=== PATIENT | female | born 1970 | race Caucasian/White ===

== ENCOUNTER 2018-12-12 19:53 | Inpatient (IN) | payer OTHER ==
[~2018-12-12] VITALS: Ht 154.9 cm; Wt 40.4 kg
[2018-12-12] MEDS ORDERED: SODIUM CHLORIDE 0.9% 1,000 ML IV ONE ×2 (20:18→23:23)
[2018-12-12] MEDS ORDERED: ONDANSETRON HCL 4MG/2ML INJ IV ONE (20:30)
[2018-12-12 20:53] LABS: BASOPHILS % 0.6 % (0.0-2.0); EOSINOPHILS % 0.6 % (0.0-5.0); HEMOGLOBIN. 8.9 g/dL (12.0-16.0); LYMPHOCYTES % 20.2 % (20.0-50.0); MEAN CORPUSCULAR HEMOGLOBIN 27.1 pg (28.0-32.0); MEAN CORPUSCULAR VOLUME 79.3 fL (81.0-99.0); MEAN PLATELET VOLUME 9.9 fl (7.4-10.4); MONOCYTES % 7.6 % (2.0-8.0); PLATELET 152 x1000/uL (130-400); RED BLOOD CELL COUNT 3.28 mill/uL (4.2-5.4); RED CELL DISTRIBUTION WIDTH 14.4 % (11.6-14.6)
[2018-12-12 20:54] LABS: CHLORIDE 109 mEq/L (98-107)
[2018-12-12 20:56] LABS: PARTIAL THROMBOPLASTIN TIME 26.6 sec (23.4-31.0); PROTHROMBIN TIME 10.8 sec (9.6-11.0)
[2018-12-12 20:58] LABS: ETHANOL BLOOD < 10 mg/dL
[2018-12-12 21:16] LABS: HCG SCREEN NEGATIVE
[2018-12-12 22:40] LABS: CLARITY URINE CLEAR (CLEAR); COLOR URINE YELLOW (YELLOW); KETONES URINE NEGATIVE (NEGATIVE); LEUKOCYTE ESTERASE URINE 1+ (NEGATIVE); NITRITE URINE NEGATIVE (NEGATIVE); OCCULT BLOOD URINE NEGATIVE (NEGATIVE); PH URINE 6.5 (4.5-8.0); PROTEIN URINE NEGATIVE (NEGATIVE); SPECIFIC GRAVITY URINE 1.007 (1.005-1.030); UROBILINOGEN URINE 0.2 E.U./dL (0.2-1.0)
[2018-12-12 22:57] LABS: *AMPHETAMINES SCREEN URINE NEGATIVE (NEGATIVE); *BARBITURATES SCREEN URINE NEGATIVE (NEGATIVE); *COCAINE SCREEN URINE NEGATIVE (NEGATIVE); METHADONE URINE SCREEN NEGATIVE (NEGATIVE); OPIATES URINE SCREEN NEGATIVE (NEGATIVE); PHENCYCLIDINE URINE SCREEN NEGATIVE (NEGATIVE)
[2018-12-12 22:58] LABS: CANNABINOID URINE SCREEN NEGATIVE (NEGATIVE)
[2018-12-12 23:00] LABS: *BENZODIAZEPINES SCREEN URINE PRESUMTIVE POSITIVE (NEGATIVE)
[2018-12-13 00:01] LABS: CHLORIDE 113 mEq/L (98-107)
[2018-12-13] MEDS ORDERED: ONDANSETRON HCL 4MG/2ML INJ IV PRN (10:45)
[2018-12-13] MEDS: DEXT 5%/0.45% NACL 1000ML 1,000 ML IV SCH ×2 (10:45→23:35)
[2018-12-13 14:06] LABS: HEMATOCRIT 31.5 % (36.0-48.0); HEMOGLOBIN 10.7 g/dL (12.0-16.0)
[2018-12-13 14:42] LABS: C REACTIVE PROTEIN QUANT < 0.2 mg/L (0.0-3.0); TOTAL IRON BINDING CAPACITY 328 ug/dL (250-450)
[2018-12-13 15:05] LABS: FERRITIN < 5 ng/mL (10-291)
[2018-12-13 15:14] LABS: VITAMIN B12 SERUM 335 pg/mL (211-911)
[2018-12-13 15:15] VITALS: BP 135/76
[2018-12-13 17:33] LABS: PARTIAL THROMBOPLASTIN TIME 26.8 sec (23.4-31.0); PROTHROMBIN TIME 10.4 sec (9.6-11.0)
[2018-12-13] MEDS ORDERED: SULF500T PO (19:02)
[2018-12-13 20:00] VITALS: BP 107/57
[2018-12-14] VITALS: BP 115/62
[2018-12-14 04:00] VITALS: BP 109/55
[2018-12-14 06:38] LABS: PARTIAL THROMBOPLASTIN TIME 26.3 sec (23.4-31.0); PROTHROMBIN TIME 10.2 sec (9.6-11.0)
[2018-12-14 06:47] LABS: BASOPHILS % 0.9 % (0.0-2.0); EOSINOPHILS % 0.6 % (0.0-5.0); HEMATOCRIT. 37.5 % (36.0-48.0); HEMOGLOBIN. 12.6 g/dL (12.0-16.0); MEAN CORPUSCULAR HEMOGLOBIN 26.8 pg (28.0-32.0); MEAN CORPUSCULAR VOLUME 79.5 fL (81.0-99.0); MEAN PLATELET VOLUME 9.9 fl (7.4-10.4); MONOCYTES % 8.3 % (2.0-8.0); NEUTROPHILS % 61.2 % (40.0-76.0); PLATELET 203 x1000/uL (130-400); RED BLOOD CELL COUNT 4.72 mill/uL (4.2-5.4); RED CELL DISTRIBUTION WIDTH 14.7 % (11.6-14.6)
[2018-12-14 06:54] LABS: CHLORIDE 107 mEq/L (98-107)
[2018-12-14 08:00] VITALS: BP 140/75
[2018-12-14] MEDS: DEXT 5%/0.45% NACL 1000ML 1,000 ML IV SCH (13:30)
[2018-12-14 14:48] VITALS: BP 132/73
[2018-12-16 15:10] LABS: ANTI-MYELOPEROXIDASE AB < 9.0 U/mL (0.0-9.0); ANTI-PROTEINASE 3 ABS 3.6 U/mL (0.0-3.5)
[2018-12-17 14:10] LABS: ATYPICAL P-ANCA <1:20 titer (Neg:<1:20); CYTOPLASMIC C-ANCA <1:20 titer (Neg:<1:20); PERINUCLEAR P-ANCA <1:20 titer (Neg:<1:20)
[2018-12-17 15:12] LABS: ATYPICAL pANCA <1:20 titer (Neg:<1:20)
== END 2018-12-14 16:00 | disposition home or self-care (01) | DRG 817 ==
LOC: EDBD 21:00 → ER 21:00 → 8WST 12-13 08:05 → ENRESERV 12-13 13:53
PROVIDERS: ADMIT Internal Medicine Nephrology; ATTEND Internal Medicine Nephrology
DX: T39.092A Poisoning by salicylates, intentional self-harm, initial encounter (principal); E87.8 Other disorders of electrolyte and fluid balance, not elsewhere classified; Y92.89 Other specified places as the place of occurrence of the external cause; D64.9 Anemia, unspecified; K52.9 Noninfective gastroenteritis and colitis, unspecified; T39.1X2A Poisoning by 4-Aminophenol derivatives, intentional self-harm, initial encounter; D50.9 Iron deficiency anemia, unspecified; F32.9 Major depressive disorder, single episode, unspecified; N39.0 Urinary tract infection, site not specified; Z91.5 Personal history of self-harm; Z98.82 Breast implant status; Z91.19 Patient's noncompliance with other medical treatment and regimen
CPT/HCPCS: 36415; 71045; 80048; 80076; 80305; 80307; 80320; 80329; 82607; 82728; 82746; 82962; 83520; 83540; 83550; 84703; 85014; 85018; 85384; 85651; 86140; 86256; 86671; 93005; 93970; 96361; 96374; 99291; J2405; J7030; J7070; G0480

== ENCOUNTER 2019-11-05 12:30 | Emergency (ER) | payer MEDICAID ==
[~2019-11-05] VITALS: Ht 152.4 cm; Wt 55.0 kg
[~2019-11-05 12:30] MED LIST: SULF500T PO
[2019-11-05] MEDS ORDERED: SODIUM CHLORIDE 0.9% 1,000 ML IV ONE (13:53)
[2019-11-05 14:22] LABS: BASOPHILS % 0.7 % (0.0-2.0); EOSINOPHILS % 0.8 % (0.0-5.0); HEMATOCRIT. 31.7 % (36.0-48.0); HEMOGLOBIN. 10.8 g/dL (12.0-16.0); LYMPHOCYTES % 17.1 % (20.0-50.0); MEAN CORPUSCULAR HEMOGLOBIN 26.4 pg (28.0-32.0); MEAN CORPUSCULAR VOLUME 77.8 fL (81.0-99.0); MEAN PLATELET VOLUME 9.4 fl (7.4-10.4); MONOCYTES % 9.4 % (2.0-8.0); PLATELET 219 x1000/uL (130-400); RED BLOOD CELL COUNT 4.07 mill/uL (4.2-5.4); RED CELL DISTRIBUTION WIDTH 15.7 % (11.6-14.6)
[2019-11-05 14:28] LABS: CHLORIDE 107 mEq/L (98-107)
[2019-11-05 14:29] LABS: INR 0.9; PROTHROMBIN TIME 10.3 sec (9.6-11.0)
[2019-11-05 14:32] LABS: CLARITY URINE CLEAR (CLEAR); COLOR URINE DARK YELLOW (YELLOW); KETONES URINE NEGATIVE (NEGATIVE); LEUKOCYTE ESTERASE URINE 1+ (NEGATIVE); NITRITE URINE NEGATIVE (NEGATIVE); OCCULT BLOOD URINE 2+ (NEGATIVE); PH URINE 6.5 (4.5-8.0); PROTEIN URINE NEGATIVE (NEGATIVE); SPECIFIC GRAVITY URINE 1.017 (1.005-1.030); UROBILINOGEN URINE 0.2 E.U./dL (0.2-1.0)
[2019-11-05] MEDS ORDERED: DEXAMETHASONE 4MG/ML 1ML VIAL IV ONE (15:30)
[2019-11-05 16:05] VITALS: BP 127/68
== END 2019-11-05 16:05 | disposition home or self-care (01) ==
LOC: ER 12:30
DX: K51.90 Ulcerative colitis, unspecified, without complications (principal)
CPT/HCPCS: 36415; 80053; 81003; 85025; 85610; 85651; 86141; 99283; J7030

== ENCOUNTER 2022-07-01 09:07 | Emergency (ER) | payer MEDICAID, OTHER ==
[~2022-07-01] VITALS: Ht 165.1 cm; Wt 40.0 kg
[2022-07-01 09:19] VITALS: BP 144/88
[2022-07-01 10:22] LABS: CLARITY URINE CLOUDY (CLEAR); COLOR URINE YELLOW (YELLOW); KETONES URINE NEGATIVE (NEGATIVE); LEUKOCYTE ESTERASE URINE TRACE (NEGATIVE); NITRITE URINE NEGATIVE (NEGATIVE); OCCULT BLOOD URINE NEGATIVE (NEGATIVE); PROTEIN URINE NEGATIVE (NEGATIVE); SPECIFIC GRAVITY URINE 1.013 (1.005-1.030); UROBILINOGEN URINE 0.2 E.U./dL (0.2-1.0)
[2022-07-01] MEDS ORDERED: DIF15 MT (10:24)
== END 2022-07-01 10:41 | disposition home or self-care (01) ==
LOC: ER 09:07
DX: N89.8 Other specified noninflammatory disorders of vagina (principal); Z87.19 Personal history of other diseases of the digestive system
CPT/HCPCS: 81003; 99283

== ENCOUNTER 2024-04-28 08:55 | Emergency (ER) | payer MEDICAID ==
[~2024-04-28] VITALS: Ht 160 cm; Wt 37.2 kg
[~2024-04-28 08:55] MED LIST changes: +DIF15 MT
[2024-04-28 09:05] VITALS: O2SAT 100
[2024-04-28] MEDS: KETOROLAC 30MG/ML VIAL IM STA (10:39)
[2024-04-28 11:07] VITALS: BP 128/77; PULSE 62; RESP 18; TEMP 36.66960; O2SAT 100
== END 2024-04-28 11:07 | disposition home or self-care (01) ==
LOC: ER 08:55
DX: M54.2 Cervicalgia (principal); M54.50 Low back pain, unspecified; Z98.890 Other specified postprocedural states
CPT/HCPCS: 81025; 72040; 72070; 72100; 96372; 99284; J1885; Z7610

== ENCOUNTER 2024-12-05 11:20 | Emergency (ER) | payer MEDICAID ==
[~2024-12-05] VITALS: Ht 165.1 cm; Wt 50.0 kg
[2024-12-05 11:28] VITALS: O2SAT 94
[2024-12-05] MEDS: MORPHINE SULFATE 4 MG/ML INJ (FOR IV/IM USE) IM ONE (13:04)
[2024-12-05] MEDS: KETOROLAC 30MG/ML VIAL IM ONE (13:04)
[2024-12-05] MEDS ORDERED: IBUP-2029 MT (14:15)
[2024-12-05 14:36] VITALS: BP 130/64; PULSE 76; RESP 16; TEMP 36.7; O2SAT 97
== END 2024-12-05 14:38 | disposition home or self-care (01) ==
LOC: ER 11:20
DX: S82.832A Other fracture of upper and lower end of left fibula, initial encounter for closed fracture (principal); Z98.890 Other specified postprocedural states; W18.30XA Fall on same level, unspecified, initial encounter; Y93.89 Activity, other specified; Y92.89 Other specified places as the place of occurrence of the external cause; Y99.8 Other external cause status
CPT/HCPCS: 99284; 29515; 73590; 73610; 96372; J1885; J2270; A6449